=== PATIENT | female | born 1945 | race Caucasian/White ===

== ENCOUNTER → 2017-10-17 | Outpatient (CLI) | payer MEDICARE, BC | END | disposition home or self-care (01) | LOC: LABPAT 10:13 | PROVIDERS: ATTEND Orthopaedic Surgery | DX: Z01.812 Encounter for preprocedural laboratory examination (principal); M16.11 Unilateral primary osteoarthritis, right hip | CPT/HCPCS: 87070 ==

== ENCOUNTER 2017-10-27 05:38 | Inpatient (IN) | payer MEDICARE, BC ==
[2017-10-13 15:26] VITALS: BMI 19.5
--- NOTE | 2017-10-26 13:19 | HP ---
HISTORY AND PHYSICAL Surgery scheduled for 10/27/2017. Bailey Anton is a 71-year-old patient seen with symptomatic right hip osteoarthritis. We discussed treatment options. She elected to proceed with direct anterior right total hip arthroplasty. Consent regarding procedure was obtained. Medical clearance was provided by Dr. Block. PAST MEDICAL HISTORY: Hyperlipidemia, osteoarthritis. PAST SURGICAL HISTORY: Laminectomy. DAILY MEDICATIONS: Pravastatin, vitamins. ALLERGIES: Are CODEINE, ERYTHROMYCIN, LIPITOR, IV CONTRAST, AND ROBAXIN. SOCIAL HISTORY: Patient denies current tobacco use. PHYSICAL EXAMINATION: Evaluation right hip: Diffuse tenderness about the hip girdle. Limited range of motion with pain. Positive impingement sign. Straight leg raise negative. Distal neurovascular exam is intact. RADIOGRAPHS: Radiographs were obtained of the right hip revealing severe osteoarthritis. IMPRESSION: 1. Right hip osteoarthritis. 2. Hyperlipidemia. PLAN: Direct anterior right total hip arthroplasty. MMODL / IJN: [id number] /
[~2017-10-27 05:38] MED LIST: ACETAMINOPHEN TAB 500 MG TAB PO ONE; LACTATED RINGERS 1,000 ML IV SCH; MELOXICAM 7.5 MG TAB PO ONE; MIDAZOLAM 2 MG/2 ML VIAL IV PRN; ONDANSETRON 4 MG/2 ML VIAL IVP ONE; TRANEXAMIC ACID 1,000 MG in SODIUM CHLORIDE 0.9% 50 ML IVPB ONE; ceFAZolin IN SWFI 2 GM/20 ML SYRINGE IVP ONE; fentaNYL (PF) 50 MCG/ML 2 ML AMP IV PRN
[2017-10-27] MEDS ORDERED: LACTATED RINGERS 1,000 ML IV ONE (06:48)
[2017-10-27] MEDS ORDERED: LIDOCAINE 1% 20 ML VIAL (10MG/ML) FOR IV START INTRADERMA ONE (06:48)
[2017-10-27] MEDS ORDERED: PHENYLEPHRINE-0.9% NACL SYG 1 MG/10 ML SYRINGE ONE (07:28)
[2017-10-27] MEDS ORDERED: PROPOFOL 10 MG/ML 20 ML VIAL IV ONE (07:28)
[2017-10-27] MEDS ORDERED: MIDAZOLAM 2 MG/2 ML VIAL ONE (07:28)
[2017-10-27] MEDS ORDERED: SODIUM CHLORIDE 0.9% 100 ML BAG ONE (07:28)
[2017-10-27] MEDS ORDERED: TRANEXAMIC ACID 1,000 MG/10 ML VIAL ONE (07:28)
[2017-10-27] MEDS ORDERED: fentaNYL (PF) 50 MCG/ML 2 ML AMP ONE (07:28)
[2017-10-27] MEDS ORDERED: ROPIVACAINE 246.25 MG, EPINEPHrine 0.5 MG, KETOROLAC 30 MG, cloNIDine HCL/PF 80 MCG, WA... MISCELLANE ONE ×5 (07:49)
[2017-10-27] MEDS ORDERED: ONDANSETRON 4 MG/2 ML VIAL IVP PRN (09:21)
[2017-10-27] MEDS ORDERED: NALOXONE 0.4 MG/ML 1 ML VIAL IV PRN (09:21)
[2017-10-27] MEDS ORDERED: HYDROcodone/APAP 5-325MG 1 EACH TAB PO PRN ×2 (09:21)
[2017-10-27] MEDS ORDERED: MORPHINE SULFATE 4MG/4ML SYRG IVP PRN ×3 (09:21)
[2017-10-27] MEDS ORDERED: hydrOXYzine PAMOATE 25 MG CAP PO PRN (09:21)
--- NOTE | 2017-10-27 09:21 | P.OP ---
Date of Procedure: 10/27/17 Preoperative Diagnosis: Right hip osteoarthritis Postoperative Diagnosis: Right hip osteoarthritis Procedure(s) Performed: Direct anterior right total hip arthroplasty Implants: 1. Depuy Corail press-fit femoral stem K a size 10 standard collar 2. Depuy pinnacle press-fit acetabular shell 50 mm 3. Depuy pinnacle polyethylene acetabular liner neutral 32 mm ID 50 mm OD 4. Biolox delta ceramic femoral head +1m 32 mm Anesthesia: regional (Regional block), local, spinal Surgeon: Maximino Rodriguez Investment Executive #1: Narayan Mcadams Estimated Blood Loss (ml): 150 Pathology: other (Femoral head) Condition: stable Disposition: PACU Indications for Procedure: 71-year-old patient seen with symptomatic right hip osteoarthritis. After having treatment options discussed, she elected to proceed with total hip arthroplasty. Operative Findings: See description of procedure Description of Procedure: The patient was taken to the operative suite after having a regional block performed by the department of anesthesia. Patient underwent a spinal anesthetic by the department of anesthesia. Patient was then transferred to the [place] table. Patient was given preoperative IV antibiotics and TXA. Both lower extremities were placed in standard leg spars. The hip was then prepped and draped in the normal sterile orthopedic fashion. A standard anterior incision was made beginning 3 cm lateral and 1 cm distal to the ASIS extending 10 cm. Dissection was then carried down through the subcutaneous soft tissues down to the fascia overlying the tensor fascia juan. An incision was now made through the fascia. Careful dissection was taken down exposing the tensor fascia juan muscle. A Cobra retractor was now placed along the medial femoral neck and a second one along the lateral femoral neck. The venous circumflex vessels were now identified, cauterized and clipped. We identified the anterior hip capsule. An incision was made through the hip capsule along the lateral border. Tag sutures were then placed along the anterior capsule and lateral capsule. We then performed a capsulotomy. Retractors were now placed around the femoral neck itself. A Cobra retractor was now placed along the anterior acetabulum. Good exposure was now noted of the femoral head/neck complex. Residual labrum was debrided out. We placed the extremity into 3 turns of fine traction. We were then able to introduce a skid in between the femoral head and acetabulum. A placed a awl into the femoral head. We took 2 turns of traction off the extremity. Rotation was now released. The femoral head was then dislocated without difficulty. Additional releasing was performed of the capsule. The head was then reduced. All traction was released. A femoral neck cut was now made with a sagittal saw. It was completed with an osteotome at the lateral neck area. The femoral head was now removed without difficulty. There was advanced osteoarthritis of both the femoral head and acetabulum. The extremity was now rotated to 60 of external rotation. It was locked in position. Residual labrum was now debrided out. Serial reaming was performed of the acetabulum. Once we reached the appropriate size and a trial was position and fit nicely. The trial was removed. The wound was irrigated with pulse lavage mechanical irrigation. The appropriate size was now chosen opened and made available. It was introduced into the acetabulum without difficulty. The C-arm/fluoroscopy was now brought into the operative field. We made sure we had a true AP pelvic view. We now under direct C-arm/fluoroscopy introduced into the acetabular component with appropriate version and inclination. It was well seated and stable. The C-arm was pulled back. An appropriate liner was introduced and clicked into position. It was felt to be stable. At this point retractors were removed. The extremity was now placed into 120 external rotation with no traction. The leg was now dropped to the ground and adducted. Appropriate retractors were now positioned along the proximal femur. We also placed our femoral look into position. Additional capsular releasing was performed to gain access to the proximal femur. We now used a box osteotome. A canal finder was now utilized. Serial broaching was now performed until we reached the appropriate size with good overall rotational stability. Appropriate calcar planing was performed. A trial head/neck was placed into position. The hip was now reduced. The C-arm/fluoroscopy was brought back into the operative field. A spot film was obtained of the nonoperative hip. A spot film was obtained of the trial components. Overlays were performed, we noted good overall alignment and positioning for determining leg length. The C-arm/fluoroscopy was pulled back. Retractors were repositioned and the hip was dislocated. The leg was again taken down to the ground and adducted. Appropriate retractors were repositioned as well as the femoral hook. All trial components were removed. The femoral implant was opened along with the femoral head. The wound was irrigated with pulse lavage mechanical irrigation. The deep soft tissues were infiltrated with local analgesic. The femoral implant was introduced with good purchase and fixation noted. The femoral head was introduced with good positioning and fixation noted. Retractors were now removed. The hip was now reduced. There appeared be good positioning of the hip. A spot film was obtained to document this. Bipolar cautery had been utilized intermittently through the procedure for hemostasis. The wound was irrigated copiously with pulse lavage mechanical irrigation. The superficial soft tissues were infiltrated with local analgesic. The fascia was repaired with Vicryl suture. The subcutaneous soft tissues were repaired in layers with Vicryl suture. The skin was approximated with pernio/Dermabond. Sterile dressings were applied. Patient was then awakened, transferred to a bed and taken to recovery in stable condition. Jagdish DAVILA assisted with the procedure.
--- NOTE | 2017-10-27 09:42 | XR ---
EXAMINATION TYPE: XR Hip Limited RT DATE OF EXAM: 10/27/2017 COMPARISON: NONE HISTORY: Postop TECHNIQUE: One view submitted. FINDINGS: There is a prosthetic hip in near anatomic alignment. There is soft tissue edema and emphysema. IMPRESSION: 1. Postoperative change. Appears in near-anatomic alignment.
--- NOTE | 2017-10-27 09:43 | FL ---
EXAMINATION TYPE: FL guidance operating room DATE OF EXAM: 10/27/2017 HISTORY: Flouroscopy time 18 seconds of fluoroscopy provided. IMPRESSION: 1. Fluoroscopy time.
[2017-10-27] MEDS ORDERED: MEPERIDINE 50 MG/ML SYRINGE IVP ONE (09:50)
[2017-10-27] MEDS: LACTATED RINGERS 1,000 ML IV SCH ×2 (10:07→21:39)
[2017-10-27] MEDS ORDERED: ONDANSETRON 4 MG/2 ML VIAL IVP ONE (10:10)
[2017-10-27] MEDS: traMADol 50 MG TAB PO SCH ×2 (12:27→17:48)
[2017-10-27] MEDS: ceFAZolin IN SWFI 2 GM/20 ML SYRINGE IVP SCH (15:14)
--- NOTE | 2017-10-27 18:09 | P.CONS ---
History of Present Illness - Reason for Consult Perioperative combination management - History of Present Illness Visit pleasant 71-year-old female admitted for right hip arthrodesis exisulind underwent surgery patient's [place] catheter is out patient did move her bowels today morning. No overnight events patient is clinically doing well. Review of Systems REVIEW OF SYSTEMS: CONSTITUTIONAL: No fever, no malaise, no fatigue. HEENT: No recent visual problems or hearing problems. Denied any sore throat. CARDIOVASCULAR: No chest pain, orthopnea, PND, no palpitations, no syncope. PULMONARY: No shortness of breath, no cough, no hemoptysis. GASTROINTESTINAL: No diarrhea, no nausea, no vomiting, no abdominal pain. Normoactive bowel sounds. NEUROLOGICAL: No headaches, no weakness, no numbness. HEMATOLOGICAL: Denies any bleeding or petechiae. GENITOURINARY: Denies any burning micturition, frequency, or urgency. MUSCULOSKELETAL/RHEUMATOLOGICAL: Denies any joint pain, swelling, or any muscle pain. ENDOCRINE: Denies any polyuria or polydipsia. The rest of the 14-point review of systems is negative. Past Medical History Past Medical History: Cancer, Hyperlipidemia, Osteoarthritis (OA) Additional Past Medical History / Comment(s): skin cancer basal and squamous cell, seasonal allergies History of Any Multi-Drug Resistant Organisms: None Reported Past Surgical History: Adenoidectomy, Back Surgery, Tonsillectomy Additional Past Surgical History / Comment(s): L4-L5 spinal decompression and laminectomy, rt ovary removed, tear duct and stone removed, wisdom teeth , TRH 4 --18 Past Anesthesia/Blood Transfusion Reactions: Postoperative Nausea & Vomiting ( PONV) Additional Past Anesthesia/Blood Transfusion Reaction / Comm: slow to wake up after 1 surgery, and woke up during tear duct surgery Past Psychological History: Anxiety Additional Psychological History / Comment(s): agoraphobia Smoking Status: Never smoker Past Alcohol Use History: Occasional Past Drug Use History: None Reported - Past Family History Mother Family Medical History: Osteoarthritis (OA) Additional Family Medical History / Comment(s): parkinsons, heart problems Father Family Medical History: Myocardial Infarction ([place]) Additional Family Medical History / Comment(s): alzheimers Medications and Allergies Home Medications Medication Instructions Recorded Confirmed Type ALPRAZolam [Xanax] 0.25 mg PO DAILY PRN 10/13/17 10/27/17 History Calcium Carbonate/Vitamin D3 1 tab PO DAILY 10/13/17 10/27/17 History [Calcium 500-Vit D3 600 Tablet] Fluticasone Furoate [Flonase 1 spray EA NOSTRIL DAILY 10/13/17 10/27/17 History Sensimist] Glucosam/Chond/Hyalu/Cf Borate 1 tab PO DAILY 10/13/17 10/27/17 History [Move Free Joint Health Tablet] Loratadine [Claritin] 10 mg PO DAILY 10/13/17 10/27/17 History Multivit-Min/FA/Lycopen/Lutein 1 tab PO DAILY 10/13/17 10/27/17 History [Centrum Silver Tablet] Naproxen Sodium [Aleve] 220 mg PO DAILY PRN 10/13/17 10/27/17 History Pravastatin Sodium [Pravachol] 20 mg PO DAILY 10/13/17 10/27/17 History Allergies Allergy/AdvReac Type Severity Reaction Status Date / Time alendronate sodium Allergy exteme Verified 10/27/17 11:50 [From Fosamax] muscle weakness atorvastatin [From Lipitor] Allergy Rash/Hives Verified 10/27/17 11:50 codeine Allergy Vomiting Verified 10/27/17 11:50 erythromycin base Allergy Diarrhea Verified 10/27/17 11:50 Iodinated Contrast- Oral and Allergy Rash/Hives Verified 10/27/17 11:50 IV Dye methocarbamol [From Robaxin] Allergy Vomiting Verified 10/27/17 11:50 prednisone Allergy Rash/Hives Verified 10/27/17 11:50 shellfish derived [Shellfish] Allergy Rash/Hives Verified 10/27/17 11:50 Physical Exam Vitals: Vital Signs Temp Pulse Resp BP Pulse Ox 10/27/17 12:30 73 16 105/56 97 10/27/17 12:15 75 16 104/59 95 10/27/17 12:00 79 16 105/57 99 10/27/17 11:45 74 16 106/59 96 10/27/17 11:30 84 16 102/59 96 10/27/17 11:15 74 16 101/59 97 10/27/17 11:00 76 16 107/57 97 10/27/17 10:45 83 16 105/62 99 10/27/17 10:42 85 16 10/27/17 10:30 97.9 F 91 16 112/71 97 10/27/17 10:13 85 16 117/59 100 10/27/17 10:00 91 16 127/59 100 10/27/17 09:45 86 16 118/56 100 10/27/17 09:27 98 F 71 16 103/57 100 10/27/17 07:20 81 18 115/64 99 10/27/17 06:33 98.0 F 76 18 124/64 98 Intake and Output 10/27/17 10/27/17 10/27/17 06:59 14:59 22:59 Intake Total 100 1590 Output Total 550 Balance 100 1040 Intake: IV 100 950 Intake, IV Titration 640 Amount Lactated Ringers 1,000 ml 640 @ 80 mls/hr IV .[id number] EFREN Rx#:[id number] Output: Urine 400 Estimated Blood Loss 150 Other: Weight 51.71 kg PHYSICAL EXAMINATION: GENERAL: The patient is alert and oriented x3, not in any acute distress. Well developed, well nourished. HEENT: Pupils are round and equally reacting to light. EOMI. No scleral icterus. No conjunctival pallor. Normocephalic, atraumatic. No pharyngeal erythema. No thyromegaly. CARDIOVASCULAR: S1 and S2 present. No murmurs, rubs, or gallops. PULMONARY: Chest is clear to auscultation, no wheezing or crackles. ABDOMEN: Soft, nontender, nondistended, normoactive bowel sounds. No palpable organomegaly. MUSCULOSKELETAL: Deferred to orthopedic surgery EXTREMITIES: No cyanosis, clubbing, or pedal edema. NEUROLOGICAL: Gross neurological examination did not reveal any focal deficits. SKIN: No rashes. Assessment and Plan Plan: -Left hip arthroplasty: Postoperative day 0 patient is clinically well pain management and due to prophylaxis per primary service -Hyperlipidemia: Can you with a statin. -Osteoarthritis -History is, squamous cell lung cancer in remission Patient's medication reconciliation was reviewed patient was started back on appropriate home medications.
[2017-10-27] MEDS: SENNOSIDES-DOCUSATE SODIUM 1 EACH TAB PO SCH (21:28)
[2017-10-28] MEDS: ceFAZolin IN SWFI 2 GM/20 ML SYRINGE IVP SCH (00:54)
[2017-10-28] MEDS: traMADol 50 MG TAB PO SCH ×5 (00:55→23:29)
[2017-10-28] MEDS ORDERED: HYDROmorphone 2 MG TAB PO PRN ×3 (04:06→04:08)
[2017-10-28] MEDS: PRAVASTATIN SODIUM 20 MG TAB PO SCH (08:02)
[2017-10-28] MEDS: MELOXICAM 7.5 MG TAB PO SCH (08:02)
[2017-10-28] MEDS: ENOXAPARIN 40 MG/0.4 ML SYRINGE SQ SCH (08:02)
[2017-10-28] MEDS: FAMOTIDINE 20 MG TAB PO SCH (08:02)
[2017-10-28 08:12] LABS: Basophils % (A) 0 %; Eosinophils % (A) 0 %; HCT 30.9 % (34.0-46.0); Lymphocytes # (A) 0.8 k/uL (1.0-4.8); Lymphocytes % (A) 11 %; MCHC 32.3 g/dL (31.0-37.0); MCV 89.9 fL (80.0-100.0); Mean Platelet Volume 7.4; Monocytes # (A) 0.5 k/uL (0-1.0); Monocytes % (A) 6 %; Neutrophils % (A) 82 %; Platelet Count 200 k/uL (150-450); RBC 3.44 m/uL (3.80-5.40); RDW 12.7 % (11.5-15.5); WBC 7.3 k/uL (3.8-10.6)
--- NOTE | 2017-10-28 11:00 | P.PN ---
Subjective Progress Note Date: 10/28/17 Principal diagnosis: Status post right total hip arthroplasty Patient is seen today resting in her hospital bed, she appears comfortable. Patient did have some nausea early this morning and has progressed. She's ambulated minimally with therapy. She denies any headaches, lightheadedness, chest pain or shortness of breath. Objective - Vital Signs Vital signs: Vital Signs Temp 98.8 F 10/28/17 07:00 Pulse 85 10/28/17 07:00 Resp 16 10/28/17 07:00 BP 104/64 10/28/17 07:00 Pulse Ox 95 10/28/17 07:00 Intake & Output 10/27/17 10/28/17 10/28/17 18:59 06:59 18:59 Intake Total 1590 1070 Output Total 550 Balance 1040 1070 Weight 51.71 kg Intake: IV 950 Intake, IV Titration 640 1070 Amount Lactated Ringers 1,000 ml 640 1070 @ 80 mls/hr IV .[id number] EFREN Rx#:[id number] Output: Urine 400 Estimated Blood Loss 150 Other: # Voids 2 1 - Exam Right lower extremity: Incision is clean, dry, and intact. The prineo tape is in good condition. There is minimal soft tissue swelling and ecchymosis surrounding the medial and lateral aspects of the incision. Calf is soft, no tenderness with palpation. Plantar flexion, dorsiflexion, EHL, FHL are intact. Sensory exam to light touch throughout the extremity is intact, dorsal pedis pulses 2+. - Labs CBC & Chem 7: 10/28/17 06:38 Labs: Abnormal Lab Results - Last 24 Hours (Table) 10/28/17 Range/Units 06:38 RBC 3.44 L (3.80-5.40) m/uL Hgb 10.0 L (11.4-16.0) gm/dL Hct 30.9 L (34.0-46.0) % Lymphocytes # 0.8 L (1.0-4.8) k/uL Assessment and Plan Plan: Assessment: 1. Postop day #1 status post right total hip arthroplasty Plan: 1. Pain control, limit narcotic use at this time. 2. Daily dressing changes/ice and elevate 3. Continue work physical therapy 4. GI and DVT prophylaxis, continue subcu medication during inpatient stay 5. Medical recommendations 6. Discharge planning: Patient likely be discharged home tomorrow Time with Patient: Less than 30
[2017-10-28] MEDS: LACTATED RINGERS 1,000 ML IV SCH ×2 (14:00→23:30)
[2017-10-28] MEDS: SENNOSIDES-DOCUSATE SODIUM 1 EACH TAB PO SCH (23:30)
[2017-10-29] MEDS: traMADol 50 MG TAB PO SCH ×2 (05:12→13:44)
[2017-10-29] MEDS: ENOXAPARIN 40 MG/0.4 ML SYRINGE SQ SCH (09:15)
[2017-10-29] MEDS: MELOXICAM 7.5 MG TAB PO SCH (09:16)
[2017-10-29] MEDS: PRAVASTATIN SODIUM 20 MG TAB PO SCH (09:16)
[2017-10-29] MEDS: FAMOTIDINE 20 MG TAB PO SCH (09:16)
[2017-10-29 09:28] VITALS: RESP 16
--- NOTE | 2017-10-29 11:26 | P.PN ---
Subjective Progress Note Date: 10/29/17 Principal diagnosis: Status post right total hip arthroplasty Patient is seen today resting in her hospital bed, she appears comfortable. Nausea has improved significantly. She denies any headaches, lightheadedness, chest pain or shortness of breath. Objective - Vital Signs Vital signs: Vital Signs Temp 97.8 F 10/29/17 07:00 Pulse 86 10/29/17 07:00 Resp 16 10/29/17 07:00 BP 100/60 10/29/17 07:00 Pulse Ox 86 L 10/29/17 07:00 Intake & Output 10/28/17 10/29/17 10/29/17 18:59 06:59 18:59 Intake Total 160 Balance 160 Weight 51.71 kg Intake: Intake, IV Titration 160 Amount Lactated Ringers 1,000 ml 160 @ 80 mls/hr IV .[id number] EFR[facility] Rx#:[id number] Other: # Voids 3 2 - Exam Right lower extremity: Incision is clean, dry, and intact. The prineo tape is in good condition. There is minimal soft tissue swelling and ecchymosis surrounding the medial and lateral aspects of the incision. Calf is soft, no tenderness with palpation. Plantar flexion, dorsiflexion, EHL, FHL are intact. Sensory exam to light touch throughout the extremity is intact, dorsal pedis pulses 2+. - Labs CBC & Chem 7: 10/28/17 06:38 Assessment and Plan Plan: Assessment: 1. Postop day #2 status post right total hip arthroplasty Plan: 1. Pain control, discharged home on oral medication 2. Daily dressing changes/ice and elevate 3. Continue work physical therapy 4. GI and DVT prophylaxis, aspirin 325 mg twice a day 5. Medical recommendations 6. Discharge planning: Patient will be discharged home today Time with Patient: Less than 30
--- NOTE | 2017-10-29 11:30 | P.DS ---
Providers Date of admission: 10/27/17 05:38 Expected date of discharge: 10/29/17 Attending physician: Maximino Rodriguez Consults: 10/27/17 09:21 Consult Physician Routine Consulting Provider: Obed Galindo Consult Reason/Comments: Medical management Do you want consulting provider notified?: Yes Primary care physician: Dali Block [facility] Hospital Course: Date of admission: 10/27/2017 Date of discharge: 10/29/2017 Admission diagnosis: Status post right total hip arthroplasty Discharge diagnosis: Same Attending physician: Dr. Rodriguez Surgical procedures: Right total hip arthroplasty Brief history: Patient is a 71-year-old female with a history of progressive primary right hip osteoarthritis. At this point patient has failed conservative treatment measures and has opted to proceed with a elective right total hip arthroplasty. Hospital course: Details of patient's surgery can be found in operative report. Patient tolerated the procedure well and was subsequently transported to orthopedic floor. Patient's orthopeidc and medical care was provided daily. Patient had daily laboratory tests performed for evaluation of overall blood counts. Patient had daily physical therapy to include strengthening range of motion as well as education with walker ambulation. Patient was treated with Lovenox for their postoperative DVT prophylaxis during their inpatient stay. Patient was noted to have a relatively uneventful postoperative course. Patient reported satisfactory pain control with oral pain medications by postoperative day 0. Patient showed satisfactory progress with physical therapy. Patient moved steadily through the program and had no difficulty meeting the goals by postoperative day 1. Given patient's otherwise satisfactory course and having met physical therapy goals, plan is to discharge patient home on postoperative day 2. Discharge condition/disposition: Patient will be discharged home in stable condition. Discharge medications: Instructions are given on resumption of patient's normal daily medications per primary care recommendation, in addition patient will be prescribed Colt 5 mg/325 mg, tramadol 50 mg, Colace 100 mg, Pepcid 20 mg, aspirin 325 mg. Discharge instructions: 1. Wound care and infection precautions, keep incision dry and covered while showering, no lotions, creams, moisturizers. No soaking, tubs, pools, hottubs. Do not scrub over the incision. 2. Weight-bear as tolerated with walker / cane until follow-up. 3. Ice and elevate when necessary. Do not exceed 20 minutes per hour with ice pack. 4. Utilize compression sleeve until seen at first follow up appointment. 5. Visiting nursing care. 6. Home physical therapy. 7. Pain meds and anticoagulants per prescription. 8. Pain medication has potential to cause constipation. Increase oral fluid and fiber intake. Contact primary care provider if you have not had a bowel movement within 48 hours after discharge 9. No anti-inflammatory medication until discussed at first post operative visit, this including Motrin, Aleve, Mobic, Diclofenac. 10. Follow up in office at 2 weeks postop with Jagdish Mcadams PA-C 11. Follow up with your primary care doctor 7-10 days after discharge. 12. Contact [facility] with any questions, . Procedures: Right total hip arthroplasty Patient Condition at Discharge: Good Plan - Discharge Summary Discharge Rx Participant: Yes New Discharge Prescriptions: New Aspirin 325 mg PO BID #60 tab Docusate [Colace] 100 mg PO DAILY #30 capsule Famotidine [Pepcid] 20 mg PO DAILY #30 tablet Hydrocodone/Acetaminophen [Colt 5-325] 1 each PO Q6HR PRN #30 tab PRN Reason: Pain traMADol HCl [Ultram] 50 mg PO Q6H PRN #40 tab PRN Reason: Pain Continue ALPRAZolam [Xanax] 0.25 mg PO DAILY PRN PRN Reason: Anxiety Loratadine [Claritin] 10 mg PO DAILY Fluticasone Furoate [Flonase Sensimist] 1 spray EA NOSTRIL DAILY Pravastatin Sodium [Pravachol] 20 mg PO DAILY Multivit-Min/FA/Lycopen/Lutein [Centrum Silver Tablet] 1 tab PO DAILY Glucosam/Chond/Hyalu/Cf Borate [Move Free Joint Health Tablet] 1 tab PO DAILY Calcium Carbonate/Vitamin D3 [Calcium 500-Vit D3 600 Tablet] 1 tab PO DAILY Discontinued Naproxen Sodium [Aleve] 220 mg PO DAILY PRN PRN Reason: Pain Discharge Medication List ALPRAZolam [Xanax] 0.25 mg PO DAILY PRN 10/13/17 [History] Calcium Carbonate/Vitamin D3 [Calcium 500-Vit D3 600 Tablet] 1 tab PO DAILY [History] Fluticasone Furoate [Flonase Sensimist] 1 spray EA NOSTRIL DAILY 10/13/17 [ History] Glucosam/Chond/Hyalu/Cf Borate [Move Free Joint Health Tablet] 1 tab PO DAILY [History] Loratadine [Claritin] 10 mg PO DAILY 10/13/17 [History] Multivit-Min/FA/Lycopen/Lutein [Centrum Silver Tablet] 1 tab PO DAILY 10/13/17 [ History] Pravastatin Sodium [Pravachol] 20 mg PO DAILY 10/13/17 [History] Aspirin 325 mg PO BID #60 tab 10/29/17 [Rx] Docusate [Colace] 100 mg PO DAILY #30 capsule 10/29/17 [Rx] Famotidine [Pepcid] 20 mg PO DAILY #30 tablet 10/29/17 [Rx] Hydrocodone/Acetaminophen [Colt 5-325] 1 each PO Q6HR PRN #30 tab 10/29/17 [Rx] traMADol HCl [Ultram] 50 mg PO Q6H PRN #40 tab 10/29/17 [Rx] Follow up Appointment(s)/Referral(s): Dali Block DO [Primary Care Provider] - 11/04/17 11:00 am Narayan Mcadams PAC [PHYSICIAN ICE GRINDER] - 11/12/17 2:10 pm [facility] Visiting Nurse, [NON-STAFF] - Activity/Diet/Wound Care/Special Instructions: Orthopedic Discharge Instructions: 1. Wound care and infection precautions, keep incision dry and covered while showering, no lotions, creams, moisturizers. No soaking, pools, hot tubs. Do not scrub over incision. 2. Weight-bear as tolerated with walker / cane until follow-up. 3. Ice and elevate when necessary. Do not exceed 20 minutes per hour with ice pack. 4. Utilize compression sleeve until seen at first follow up appointment. 5. Visiting nursing care. 6. Home physical therapy. 7. Pain meds and anticoagulants per prescription. 8. Pain medication has potential to cause constipation. Increase oral fluid and fiber intake. Contact primary care provider if you have not had a bowel movement within 48 hours after discharge. 9. No anti-inflammatory medication until discussed at first post operative visit, this including Motrin, Aleve, Mobic, Diclofenac. 10. Follow up in office at 2 weeks postop with Jagdish Mcadams PA-C 11. Follow up with your primary care doctor 7-10 days after discharge. 12. Contact [facility] with any questions, . Discharge Disposition: HOME WITH HOME HEALTH SERVICES
[2017-10-29] MEDS: LACTATED RINGERS 1,000 ML IV SCH (12:55)
[2017-10-29 16:42] VITALS: BP 101/63; PULSE 82; TEMP 97.6
== END 2017-10-29 17:48 | disposition home health service (06) | DRG 470 ==
LOC: 2ORMAIN 05:38 → 3SUR 09:27
PROVIDERS: ADMIT Orthopaedic Surgery; ATTEND Orthopaedic Surgery
PROC: 0SR904A Replacement of Right Hip Joint with Ceramic on Polyethylene Synthetic Substitute, Uncemented, Open Approach (ICD-10-PCS; principal; 2017-10-27 07:30)
DX: M16.11 Unilateral primary osteoarthritis, right hip (principal); E78.5 Hyperlipidemia, unspecified; F40.00 Agoraphobia, unspecified; F41.0 Panic disorder [episodic paroxysmal anxiety]; J30.2 Other seasonal allergic rhinitis; M81.0 Age-related osteoporosis without current pathological fracture; M51.9 Unspecified thoracic, thoracolumbar and lumbosacral intervertebral disc disorder; M50.30 Other cervical disc degeneration, unspecified cervical region; G56.00 Carpal tunnel syndrome, unspecified upper limb; Z79.899 Other long term (current) drug therapy; Z85.828 Personal history of other malignant neoplasm of skin; Z90.721 Acquired absence of ovaries, unilateral; Z88.8 Allergy status to other drugs, medicaments and biological substances; Z88.1 Allergy status to other antibiotic agents; Z91.041 Radiographic dye allergy status; Z88.5 Allergy status to narcotic agent; Z91.013 Allergy to seafood; Z82.49 Family history of ischemic heart disease and other diseases of the circulatory system; Z82.61 Family history of arthritis; Z82.0 Family history of epilepsy and other diseases of the nervous system
CPT/HCPCS: 36415; 73501; 85025; 86850; 86900; 86901; 88300